=== PATIENT | female | born 1995 | race Caucasian/White ===

== ENCOUNTER 2019-03-14 22:59 | Emergency (ER) | payer OTHER ==
[~2019-03-14] VITALS: Ht 157.5 cm; Wt 72.6 kg
[2019-03-14 23:03] VITALS: Ht 157.5 cm; Wt 72.6 kg
[2019-03-14 23:58] VITALS: BP 146/65
== END 2019-03-14 23:58 | disposition home or self-care (01) ==
LOC: ED 22:59
DX: Z02.89 Encounter for other administrative examinations (principal)